=== PATIENT | male | born 1980 | race Caucasian/White ===

== ENCOUNTER 2021-12-17 15:30 | Outpatient (CLI) | payer OTHER | END 2021-12-17 15:31 | disposition home or self-care (01) | LOC: CSHMRI 15:30 | PROVIDERS: ATTEND Nurse Practitioner Family | DX: M54.16 Radiculopathy, lumbar region (principal); M47.816 Spondylosis without myelopathy or radiculopathy, lumbar region | CPT/HCPCS: 72148 ==

== ENCOUNTER 2024-06-14 15:20 | Outpatient (CLI) | payer BC | END 2024-06-14 15:21 | disposition home or self-care (01) | LOC: CSHMRI 15:20 | PROVIDERS: ATTEND Family Medicine | DX: M47.22 Other spondylosis with radiculopathy, cervical region (principal); M48.02 Spinal stenosis, cervical region | CPT/HCPCS: 72141 ==